=== PATIENT | female | born 1990 | race Caucasian/White ===

== ENCOUNTER 2017-03-15 07:15 | Inpatient (IN) | payer OTHER ==
[2017-03-15] MEDS ORDERED: BUTORPHANOL TARTRATE 1 MG/ML VIAL IVPUSH ONE (08:57)
[2017-03-15] MEDS ORDERED: PROMETHAZINE HCL 25 MG/1 ML VIAL IVPUSH ONE (08:57)
[2017-03-15] MEDS ORDERED: OXYTOCIN 15 UNITS/ LR 250 ML 250 ML IVPB SCH (09:00)
[2017-03-15] MEDS ORDERED: DEXTROSE 5%-LACTATED RINGERS 1,000 ML IV SCH (09:00)
[2017-03-15 09:03] LABS: BASOPHIL 0.3 % (0-2.0); EOSINOPHIL 1.6 % (0-4.5); MCH 29.5 pg (25.7-33.7); MCHC 33.8 g/dl (32.0-36.0); MEAN CELL VOLUME 87.2 fl (80-96); NEUTROPHILS 76.3 % (42.8-82.8); PLATELET COUNT 139 K/MM3 (134-434); RDW 14.8 % (11.6-15.6); WHITE BLOOD COUNT 10.5 K/mm3 (4.0-10.0)
[2017-03-15 09:31] LABS: ACTIVATED PTT 25.4 SECONDS (26.9-34.4)
[2017-03-15 09:37] LABS: CALCIUM 9.1 mg/dL (8.5-10.1); CREATININE 0.5 mg/dL (0.55-1.02)
[2017-03-15 09:40] LABS: COCKROFT - GAULT 203.915
[2017-03-15 09:41] VITALS: BMI 30.1
[2017-03-15] MEDS ORDERED: PRENATAL VITAMINS W/ FOLIC ACID TABLET (FP) PO SCH (10:00)
--- NOTE | 2017-03-15 10:02 | PN ---
Progress Note (short form) - Note Progress Note: cx 4 cm, 80 vx -1 mi, fhr cat 1
[2017-03-15] MEDS: FERROUS SO4 325 MG TABLET (FP) PO SCH ×3 (10:05→22:19)
--- NOTE | 2017-03-15 12:25 | PN ---
Progress Note (short form) - Note Progress Note: cx 5 cm, 80 vx -1 srom, clear, fhr cat 1
--- NOTE | 2017-03-15 12:30 | HP ---
Past Medical History - Primary Care Physician PCP:: Abdifatah Nelson - Admission Chief Complaint: 40.5 weeks, labor History of Present Illness: 27 yo f , edc by sono 03/10/15 , care in [facility] ,no complication c/o contraction since last night, no ROM, has bloody show , cx 4 cm, 80 ,vx -1 membrane bulging, fhar cat 1contraction strong History Source: Patient Limitations to Obtaining History: No Limitations - Past Medical History ...: 4 ...Para: 1 ...Term: 1 ...: 0 ...Spon : 0 ...Induced : 2 ...Multiple Gestation: 0 ...LMP: 06/03/16 ... Weeks Gestation by Dates: 40.4 ...EDC by Dates: 03/11/17 ...EDC by Sono: 03/10/17 - Past Surgical History Hx Myomectomy: No Hx Transabdominal Cerclage: No - Smoking History Smoking history: Never smoked Have you smoked in the past 12 months: No - Alcohol/Substance Use Hx Alcohol Use: No - Social History Usual Living Arrangement: Yes: With Spouse History of Recent Travel: No Home Medications - Allergies Allergies/Adverse Reactions: Allergies Allergy/AdvReac Type Severity Reaction Status Date / Time No Known Allergies Allergy Verified 03/15/17 08:19 - Home Medications Home Medications: Ambulatory Orders Vit/Iron Fumarate/FA [ Tablet] 1 tab PO DAILY 03/14/17 Ferrous Sulfate 325 mg PO BID 03/15/17 Review of Systems - Review of Systems Constitutional: reports: No Symptoms Eyes: reports: No Symptoms HENT: reports: No Symptoms Neck: reports: No Symptoms Cardiovascular: reports: No Symptoms Respiratory: reports: No Symptoms Gastrointestinal: reports: Abdominal Pain Genitourinary: reports: Frequency, Vaginal Bleeding Breasts: reports: No Symptoms Reported Musculoskeletal: reports: Back Pain Integumentary: reports: No Symptoms Neurological: reports: No Symptoms Endocrine: reports: No Symptoms Hematology/Lymphatic: reports: No Symptoms Psychiatric: reports: No Symptoms Physical Exam - Maternity Vital Signs: Vital Signs Temperature 98.3 F 03/15/17 10:00 Pulse Rate 73 03/15/17 11:00 Respiratory Rate 20 03/15/17 11:00 Blood Pressure 105/65 03/15/17 11:00 O2 Sat by Pulse Oximetry (%) Constitutional: Yes: Well Nourished, No Distress, Calm Eyes: Yes: WNL, Conjunctiva Clear, EOM Intact HENT: Yes: WNL, Atraumatic, Normocephalic Neck: Yes: WNL, Supple, Trachea Midline Cardiovascular: Yes: WNL, Regular Rate and Rhythm Breast(s): Yes: WNL - Abdominal Exam/OB Fundal Height: 40 Number of Fetuses: Single Presentation: Vertex Contractions: Yes Regularity: Irregular Intensity: Strong Monitor Mode: External Heart Rate Location: [facility] Category: I Accelerations: Uniform Decelerations: None - Vaginal Exam/OB Vaginal Bleediing: Bloody Show Speculum Exam: No Dilatation (cm): 4 cm Effacement (%): 80 Amniotic Membrane Status: Bulging Presentation: Vertex/Position Station: -2 - Physical Exam Musculoskeletal: Yes: WNL Extremities: Yes: WNL Edema: Yes Edema: LLE: Trace, RLE: Trace Deep Tendon Reflex Grade: Normal +2 ...Motor Strength: WNL Psychiatric: Yes: WNL - Labs Lab Results: CBC, BMP 03/15/17 08:35 03/15/17 08:35 Hemorrhage Risk Assessment - Risk Factors Medium Risk Factors: Yes: None Risk Score: 1 Risk Level: Medium Risk Problem List - Problems (1) Post term over 40 weeks Code(s): O48.0 - POST-TERM (2) Labor established Code(s): KKE8223 - Assessment/Plan admit, fhm, expect vaginal delivery, pain management, pitocin stimulation discussed, rba expalined,
[2017-03-15] MEDS ORDERED: FENTANYL/BUPIVACAINE/NS/PF - PCEA - 50 ML DISP.SYRIN EP SCH (12:45)
[2017-03-15] MEDS ORDERED: ELECTROLYTE-148 SOLN 1,000 ML IV SCH (19:00)
[2017-03-15] MEDS ORDERED: TUBERCULIN PPD 5 TU/0.1ML SYRINGE (IN PATIENT USE ONLY) ID ONE (19:00)
[2017-03-15] MEDS ORDERED: BENZOCAINE 20% 57 GM BOTTLE TP PRN (19:30)
[2017-03-15] MEDS ORDERED: D5W-LR W/ 20 UNITS OXYTOCIN 1,000 ML IV SCH (19:30)
[2017-03-15] MEDS ORDERED: BENZOCAINE 28 GM HEMORRHOIDAL OINTMENT TP PRN (19:30)
[2017-03-15] MEDS ORDERED: METHYLERGONOVINE MALEATE 0.2 MG/1 ML AMP IM PRN (19:30)
[2017-03-15] MEDS ORDERED: WITCH HAZEL 50% (TUCKS) 40 PAD/JAR PAD TP PRN (19:30)
[2017-03-15] MEDS ORDERED: BISACODYL 10 MG SUPP.RECT RC PRN (19:30)
[2017-03-15 21:29] LABS: URINE MARIJUANA THC NEGATIVE ng/ml (CUTOFF=50)
[2017-03-16] MEDS: IBUPROFEN 600 MG TABLET (FP) PO PRN ×2 (08:02→21:39)
[2017-03-16] MEDS: ACETAMINOPHEN 325 MG TABLET (FP) PO PRN ×2 (08:03→21:39)
--- NOTE | 2017-03-16 08:34 | PN ---
Post Progress Note - Subjective Subjective: c/o cramps Post Day: 1 Type of Delivery: Vital Signs: Vital Signs Temperature 97.4 F L 03/16/17 06:00 Pulse Rate 102 H 03/16/17 06:00 Respiratory Rate 18 03/16/17 06:00 Blood Pressure 131/84 03/16/17 06:00 O2 Sat by Pulse Oximetry (%) 98 03/15/17 19:45 Breast Exam: Yes: Soft, Other (attempting BF ). No: Engorged Uterus: Yes: Fundus Firm, Fundus below umbilicus, Non-tender Lochia: Yes: Rubra Lochia, amount: Moderate Extremities: Yes: Calves non-tender Perineum: Yes: Laceration Activity: Ambulating - Labs Labs: CBC WBC 10.5 K/mm3 (4.0-10.0) H 03/15/17 08:35 RBC 3.84 M/mm3 (3.60-5.2) 03/15/17 08:35 Hgb 11.3 GM/dL (10.7-15.3) 03/15/17 08:35 Hct 33.4 % (32.4-45.2) 03/15/17 08:35 MCV 87.2 fl (80-96) 03/15/17 08:35 MCHC 33.8 g/dl (32.0-36.0) 03/15/17 08:35 RDW 14.8 % (11.6-15.6) 03/15/17 08:35 Plt Count 139 K/MM3 (134-434) 03/15/17 08:35 MPV 9.0 fl (7.5-11.1) 03/15/17 08:35 Neutrophils % 76.3 % (42.8-82.8) 03/15/17 08:35 Lymphocytes % 14.4 % (8-40) 03/15/17 08:35 Monocytes % 7.4 % (3.8-10.2) 03/15/17 08:35 Eosinophils % 1.6 % (0-4.5) 03/15/17 08:35 Basophils % 0.3 % (0-2.0) 03/15/17 08:35 Assessment/Plan stable plan : cbc pp pending discharge tomorrow.
[2017-03-16 08:51] LABS: BASOPHIL 0.2 % (0-2.0); EOSINOPHIL 0.2 % (0-4.5); MCH 29.6 pg (25.7-33.7); MCHC 34.2 g/dl (32.0-36.0); MEAN CELL VOLUME 86.6 fl (80-96); MEAN PLT VOLUME 9.4 fl (7.5-11.1); NEUTROPHILS 82.4 % (42.8-82.8); PLATELET COUNT 144 K/MM3 (134-434); WHITE BLOOD COUNT 17.3 K/mm3 (4.0-10.0)
[2017-03-16] MEDS: PRENATAL VITAMINS W/ FOLIC ACID TABLET (FP) PO SCH (09:26)
[2017-03-16] MEDS: FERROUS SO4 325 MG TABLET (FP) PO SCH ×2 (09:26→21:39)
[2017-03-16] MEDS ORDERED: SENNOSIDES/DOCUSATE COMBO (SENNA PLUS) TABLET (UD) PO PRN (22:00)
[2017-03-17] MEDS: IBUPROFEN 600 MG TABLET (FP) PO PRN ×2 (05:15→11:45)
[2017-03-17] MEDS: ACETAMINOPHEN 325 MG TABLET (FP) PO PRN ×2 (05:16→11:45)
--- NOTE | 2017-03-17 06:21 | PN ---
Post Progress Note Post Day: 2 Type of Delivery: Vital Signs: Vital Signs Temperature 98.2 F 03/16/17 22:00 Pulse Rate 89 03/16/17 22:00 Respiratory Rate 18 03/16/17 22:00 Blood Pressure 118/60 03/16/17 22:00 O2 Sat by Pulse Oximetry (%) 98 03/15/17 19:45 Breast Exam: Yes: Soft Uterus: Yes: Fundus Firm Abdomen/GI: Yes: Abdomen soft Lochia: Yes: Rubra Lochia, amount: Small Extremities: Yes: Calves non-tender Perineum: Yes: Intact Activity: Ambulating - Labs Labs: CBC WBC 17.3 K/mm3 (4.0-10.0) H D 03/16/17 07:45 RBC 3.72 M/mm3 (3.60-5.2) 03/16/17 07:45 Hgb 11.0 GM/dL (10.7-15.3) 03/16/17 07:45 Hct 32.2 % (32.4-45.2) L 03/16/17 07:45 MCV 86.6 fl (80-96) 03/16/17 07:45 MCHC 34.2 g/dl (32.0-36.0) 03/16/17 07:45 RDW 15.0 % (11.6-15.6) 03/16/17 07:45 Plt Count 144 K/MM3 (134-434) 03/16/17 07:45 MPV 9.4 fl (7.5-11.1) 03/16/17 07:45 Neutrophils % 82.4 % (42.8-82.8) 03/16/17 07:45 Lymphocytes % 9.5 % (8-40) D 03/16/17 07:45 Monocytes % 7.7 % (3.8-10.2) 03/16/17 07:45 Eosinophils % 0.2 % (0-4.5) D 03/16/17 07:45 Basophils % 0.2 % (0-2.0) 03/16/17 07:45 Assessment/Plan doing well will dc home today
[2017-03-17] MEDS: PRENATAL VITAMINS W/ FOLIC ACID TABLET (FP) PO SCH (10:04)
[2017-03-17] MEDS: FERROUS SO4 325 MG TABLET (FP) PO SCH (10:04)
[2017-03-17 10:38] VITALS: BP 113/50; PULSE 81; TEMP 98.6
== END 2017-03-17 13:00 | disposition home or self-care (01) | DRG 560 ==
LOC: JLDR 07:15 → J3W 21:45
PROVIDERS: ADMIT Obstetrics & Gynecology; ATTEND Obstetrics & Gynecology
PROC: 10E0XZZ Delivery of Products of Conception, External Approach (ICD-10-PCS; principal; 2017-03-15)
DX: O48.0 Post-term pregnancy (principal); Z3A.40 40 weeks gestation of pregnancy; Z37.0 Single live birth
CPT/HCPCS: 36415; 59409; 80048; 80307; 85025; 85610; 85730; 86593; 86762; 86850; 86900; 86901